=== PATIENT | female | born 1995 | race Caucasian/White ===

== ENCOUNTER 2024-08-12 14:11 | Emergency (ER) | payer MEDICAID, SELFPAY ==
[2024-08-12 14:16] VITALS: BP 124/70; PULSE 91; RESP 18; TEMP 36.8; O2SAT 100
[2024-08-12 14:17] VITALS: BMI 31.4
--- NOTE | 2024-08-12 14:26 | XR_ITS ---
Examination: Complete OB ultrasound, less than 14 weeks, transabdominal Date and time of exam: August 12, 2024 1506 hours INDICATIONS: Vaginal pain and bleeding beginning 2 days ago Technique: Obstetrical ultrasound images less than 14 weeks performed via transabdominal imaging Findings: Uterus 15.1 x 5.7 x 8.0 cm Endometrial stripe is not visualized No intrauterine gestation is noted Right ovary 4.7 x 3.5 x 4.0 cm arterial flow Left ovary 4.6 x 3.5 x 3.4 cm arterial flow IMPRESSION: Limited study Enlarged uterus No uterine mass or intrauterine gestation Mild free fluid in the anterior cul-de-sac, consider pelvic inflammatory disease
--- NOTE | 2024-08-12 14:27 | PD.EDVAGBL ---
ED OB Contraction Preg RMI/HPI General Chief complaint: Vaginal Bleeding Stated complaint: VAGINAL BLEEDING Time Seen by Provider: 08/12/24 14:23 Arrival date/time: 08/12/24 14:11 RME / HPI RME / HPI Narrative: 28-year-old female patient 5 para 3 1, about 9 weeks , came in for evaluation regarding vaginal bleeding. Patient started to have vaginal bleeding since early this morning, associated with pelvic cramping, severity is moderate patient is moaning and crying. Patient told me that blood clots is coming out also. Patient denies any trauma denies any other complaints no medications taken prior to arrival. Related Data Previous Rx's ?Medication ?Instructions ?Recorded doxycycline hyclate 100 mg capsule 100 mg PO BID #10 caps 08/12/24 methylergonovine 0.2 mg tablet 0.2 mg PO QID 1 day #4 tabs 08/12/24 Allergies Allergy/AdvReac Type Severity Reaction Status Date / Time No Known Allergies Allergy Verified 12/23/21 03:35 Review of Systems Review of Systems Narrative Review of Systems: Review of system reviewed and within normal limits except mentioned in HPI ED Exam Narrative Physical exam: VITAL SIGNS: Reviewed. GENERAL APPEARANCE: Alert and interactive, follows commands, no acute distress, HEAD AND FACE: Non-traumatic. ENT: PERRL, pink conjunctivitis, eyelid no trauma, Mucous membrane moist. NECK: Supple, nontender, no nuchal rigidity. CHEST: No tenderness, no crepitus, no paradoxical movement, no retractions. LUNGS: Clear, well ventilated, symmetric, no rales, no wheezing, no ronchi, no stridor, good breath sounds bilaterally. HEART: Regular rate, regular rhythm, no murmur, no gallops. ABDOMEN: Soft, positive bowel sounds, nondistended, no guarding, nontender, no rebound, no masses, RECTAL: Deferred. GENITAL: Pelvic tenderness NEUROLOGICAL: Gross motor function intact sensory function intact, Appropriate for age. MUSCULOSKELETAL: low back nontender, full range of motion. EXTREMITIES: Nontender, full range of motion. SKIN: Color pink, dry, no rash, no lacerations, no abrasions, no contusions. LYMPHATICS: Deferred. Course Quality Measures none Orders Category Date Time Status Specimen to pathology NOW Care 08/12/24 18:24 Active US OB <= 14 weeks fetus Stat Exams 08/12/24 14:26 Completed US OB transvaginal Stat Exams 08/12/24 15:14 Completed ABO/RH Type Stat Lab 08/12/24 14:48 Completed Basic Metabolic Panel Stat Lab 08/12/24 14:48 Completed Beta HCG,Quantitative Stat Lab 08/12/24 14:48 Completed CBC Stat Lab 08/12/24 14:48 Completed Urinalysis Stat Lab 08/12/24 14:26 Ordered Acetaminophen Ivpb [Ofirmev Inj] Med 08/12/24 14:27 Discontinued 1,000 mg in 100 ml IV X1 Doxycycline [Vibramycin] Med 08/12/24 20:27 Discontinued 100 mg PO X1 ONE Ketorolac Inj [Toradol Inj] Med 08/12/24 15:11 Discontinued 30 mg IVP X1 ONE Morphine Inj Med 08/12/24 14:41 Discontinued 4 mg IVP X1 ONE Ondansetron Inj [Zofran Inj] Med 08/12/24 14:41 Discontinued 4 mg IV X1 ONE Potassium Chloride [K-Dur] Med 08/12/24 20:27 Discontinued 40 meq PO X1 ONE Sodium Chloride 0.9% 1000 ml [Ns] 1,000 ml Med 08/12/24 14:42 Discontinued IV 999 mls/hr Sodium Chloride 0.9% 1000 ml [Ns] 1,000 ml Med 08/12/24 19:14 Discontinued IV 999 mls/hr Vital Signs Vital signs: Vital Signs Temperature 98.3 F 08/12/24 14:16 Pulse Rate 91 08/12/24 14:16 Respiratory Rate 18 08/12/24 14:16 Blood Pressure 124/70 08/12/24 14:16 Pulse Oximetry (%) 100 08/12/24 14:16 Oxygen Delivery Method Room Air 08/12/24 14:16 Vaginal Bleeding MDM Narrative MDM Narrative: 28-year-old female patient 5 para 3 1, about 9 weeks , came in for evaluation regarding vaginal bleeding. Patient started to have vaginal bleeding since early this morning, associated with pelvic cramping, severity is moderate patient is moaning and crying. Patient told me that blood clots is coming out also. Patient denies any trauma denies any other complaints no medications taken prior to arrival. While in the ambulance lobby, patient passed out fetus looking tissue. It was sent to the lab. Patient's workup came back with hemoglobin of 9.6, hematocrit of 30.1. Potassium was noted to be 3.2 ultrasound transmission showed thickened endometrium, with possible retained products of conception. Spoke with Dr. Ramos, TABLET MAKING MACHINE OPERATOR on-call, who examined the patient in the emergency room and did a pelvic exam also. Patient is okay to be discharged home according to TABLET MAKING MACHINE OPERATOR. On multiple reevaluation I did not notice any heavy bleeding, there is only scant bleeding noted on the diaper. Vital signs are stable patient able to ambulate without any assistance. No recurrence of dizziness. Blood pressure prior to discharge was noted to be 105/56 taken by me Patient data External records reviewed:: None Clinical information provided by:: patient Social determinants that could affect healthcare access:: none Patient has the following chronic illnesses:: None How is presenting disease/condition affected by chronic disease/condition?: exacerbated by Evaluation data The following diagnostics were reviewed and interpreted by me:: lab results and radiology exam(s) Lab and/or radiology exams considered but not ordered:: None Interpretation Summary: Patient's workup came back with hemoglobin of 9.6, hematocrit of 30.1. Potassium was noted to be 3.2 ultrasound transmission showed thickened endometrium, with possible retained products of conception. Medications / Prescriptions Medications or Prescriptions considered but not ordered:: None Medication administrations:: Medication Administration History Discontinued Medications Doxycycline Hyclate (Doxycycline 100 Mg Tablet) 100 mg PO X1 ONE Stop: 08/12/24 20:28 Acetaminophen (Ofirmev Inj) 1,000 mg in 100 mls @ 250 mls/hr IV X1 ONE Stop: 08/12/24 14:50 Last Admin: 08/12/24 15:10 Dose: Not Given Documented By: DB Non-Admin Reason: Discontinued Sodium Chloride (Ns) 1,000 mls @ 999 mls/hr IV .Q1H1M ONE Stop: 08/12/24 15:42 Last Infusion: 08/12/24 16:20 Dose: Infused Documented By: Admin: 08/12/24 15:12 Dose: 999 mls/hr Documented By: EH Sodium Chloride (Ns) 1,000 mls @ 999 mls/hr IV .Q1H1M ONE Stop: 08/12/24 20:14 Last Admin: 08/12/24 19:15 Dose: 999 mls/hr Documented By: CB Ketorolac Tromethamine (Ketorolac Inj 30 Mg/Ml Vial) 30 mg IVP X1 ONE Stop: 08/12/24 15:12 Last Admin: 08/12/24 15:20 Dose: 30 mg Documented By: DB Morphine Sulfate (Morphine Sulf Inj 10 Mg/Ml Vial) 4 mg IVP X1 ONE Stop: 08/12/24 14:42 Last Admin: 08/12/24 14:54 Dose: 4 mg Documented By: EH Ondansetron HCl (Ondansetron Inj 2 Mg/Ml Inj 2 Ml) 4 mg IV X1 ONE; Protocol Stop: 08/12/24 14:42 Last Admin: 08/12/24 15:09 Dose: 4 mg Documented By: EH Potassium Chloride (Potassium Chloride 20 Meq Tabcr) 40 meq PO X1 ONE Stop: 08/12/24 20:28 IV fluids for hydration Toradol and morphine. Patient was also given doxycycline and potassium replacement Consultations Consultation(s) initiated? (list below): No Diagnosis Vaginal Bleeding Differential Diagnosis: missed , threatened and other (Complete ) Most likely diagnosis given after review of the tests above:: Completed Admission Indicated Admission indicated?: not indicated Explain why admission is indicated or not indicated:: Stable Admission Request Was there a request for admission?: No Disposition Plan Disposition Plan: Discharge Discharge Attestation Discharge Attestation: The patient was given an opportunity to ask questions and understood the discharge instructions. Discharge instructions specifically effects, indications for sooner follow up or return to the emergency department, and the expected course of current diagnosis. Patient condition: Stable Discharge Plan Plan Patient Disposition: HOME (Self Care) Disposition Comment: Stable Patient condition on transfer: Stable Prescriptions/Referrals Prescriptions/Med Rec: New methylergonovine 0.2 mg tablet 0.2 mg PO QID 1 Days Qty: 4 0RF doxycycline hyclate 100 mg capsule 100 mg PO BID Qty: 10 0RF Referrals: Ayden Moyer MD [Primary Care Provider] - In 1 week Problem List Clinical Impression: Complete Patient/Caregiver Discharge Instructions Discharge Activity: activity as tolerated Education Materials: ED MISCARRIAGE Completed Additional Instructions: Thank you for the opportunity for serving you today. You are stable for discharged . You are advised to: Follow-up with your TABLET MAKING MACHINE OPERATOR next week Return to ED for worsening of symptoms, increasing bleeding, dizziness, inability to ambulate due to dizziness Increase oral fluids Take medication as prescribed Print Language: [place]an Stand Alone Forms: Stefanie Award Info., Patient Portal Info Letter
[2024-08-12] MEDS: MORPHINE SULF INJ 10 MG/ML VIAL 4 MG IVP (14:54)
[2024-08-12] MEDS: ONDANSETRON INJ 2 MG/ML INJ 2 ML 4 MG IV (15:09)
[2024-08-12] MEDS: SODIUM CHLORIDE 0.9% 1000 ML 1,000 ML 999 ML IV ×2 (15:12→19:15)
[2024-08-12 15:13] LABS: Basophils # (Auto) 0.1 Thou/mm3 (0.0-0.2); Basophils % (Auto) 0 % (0-2.5); Eosinophils # (Auto) 0.1 Thou/mm3 (0.0-0.5); Eosinophils % (Auto) 0 % (0-10); Hematocrit 30.1 % (36.0-46.0); Hemoglobin 9.6 g/dL (12.0-16.0); Immature Granulocytes % (Auto) 0 % (0-0); Immature Granulocytes Auto 0.06 Thou/mm3 (0.00-0.00); Lymphocytes # (Auto) 1.6 Thou/mm3 (1.0-4.8); Lymphocytes % (Auto) 11 % (10-50); Mean Corpuscular HGB Conc 31.9 g/dl (31.0-37.0); Mean Corpuscular Hemoglobin 23.4 pg (25.0-35.0); Mean Corpuscular Volume 73 fL (80-100); Monocytes # (Auto) 0.5 Thou/mm3 (0.0-0.8); Monocytes % (Auto) 4 % (0-12); Neutrophils # (Auto) 11.4 Thou/mm3 (1.8-7.7); Neutrophils % (Auto) 84 % (37-80); Nucleated Red Blood Cell % 0 /100 WBC (0); Platelet Count 364 Thou/mm3 (140-440); RDW Standard Deviation 43.8 fL (36.4-46.3); White Blood Count 13.6 Thou/mm3 (3.6-11.0)
--- NOTE | 2024-08-12 15:14 | XR_ITS ---
Examination: OB Transvaginal ultrasound of the pelvis, complete Technique: Transvaginal sonographic images pelvis performed using gramajo scale imaging Exam date and time: August 12, 2024 1540 hours INDICATIONS: Vaginal bleeding and pelvic pain beginning 2 days ago worse today FINDINGS: Uterus 10.2 x 5.9 x 7.4 cm Endometrium 2.5 cm Echo pattern is heterogeneous No intrauterine gestation No discrete uterine mass Right ovary 3.5 x 2.7 x 2.7 cm arterial flow 18 mm follicular cyst Left ovary 3.7 x 1.7 x 2.0 cm arterial flow IMPRESSION: No intrauterine gestation Heterogeneous thickened endometrial stripe 2.5 cm, consider retained products of conception, recommend continued short-term follow-up transvaginal pelvic sonography.
[2024-08-12] MEDS: KETOROLAC INJ 30 MG/ML VIAL IVP (15:20)
[2024-08-12 15:34] LABS: Anion Gap 11 (7-16); BUN/Creatinine Ratio 12 Ratio (12-20); Blood Urea Nitrogen 6 mg/dL (9-23); Calcium 8.9 mg/dL (8.3-10.6); Carbon Dioxide 20.8 mMol/L (20.0-31.0); Chloride 101 mMol/L (98-107); Creatinine (Component) 0.5 mg/dL (0.6-1.3); Estimated Creatinine Clearance 130.8 mL/min (>60); Glucose 117 mg/dL (74-106); Osmolality,Calculated 264 (275-295); Potassium 3.2 mMol/L (3.4-5.1); Sodium 133 mMol/L (136-145); eGFR > 60 See Note
[2024-08-12 16:20] LABS: Beta HCG,Quantitative 144373 mIU/mL (<5.0)
--- NOTE | 2024-08-12 16:20 | PC.NURSE ---
FETUS AND TISSUE SENT TO LAB FOR PATHOLOGY AT THIS TIME
[2024-08-12 16:30] VITALS: BP 87/52; PULSE 78; RESP 19; TEMP 36.5; O2SAT 100
[2024-08-12 17:00] VITALS: BP 97/66; PULSE 72; RESP 19; O2SAT 100
[2024-08-12 17:16] VITALS: BMI 31.4
--- NOTE | 2024-08-12 17:41 | ESCONSULT_ITS ---
MARKETING SALES REPRESENTATIVE HPI Data of Consult Primary Care Provider: Ayden Moyer MD Consult Narrative History of present illness: Princess is a 28yo who presented via ambulance to ED for vaginal bleeding and intense contraction-like pain. She is approximately 9 weeks per stated gestational age, she notes having an ultrasound done 2 weeks ago in an ER when she presented for nausea/vomiting- at that time, per her, was consistent with 7wk, SIUP with +FCA. She had not yet seen an OBGYN to establish care. She notes the last 2 weeks she has felt a lot of fatigue so was at home not doing much. Yesterday she began having brown spotting that got heavier to the point that today she had heavy bleeding and intense, severe contraction pains. When she got to the ER, she had intensified cramping and expelled what she and ER PA described as an intact fetus, however still having intermittent cramping after. was desired. cc:: cc: Review of Systems Review of Systems Systems Reviewed: All systems reviewed, normal except as documented Constitutional Constitutional: Denies chills, Denies fever(s), Denies headache(s) and Reports lethargy ENT Ears, Nose, Mouth, and Throat: Denies dizziness and Denies headache(s) Cardiovascular Cardiovascular: Denies chest pain, Denies dyspnea and Denies syncope Respiratory Respiratory: Denies cough and Denies dyspnea Neurologic Neurologic: Denies dizziness, Denies headache(s) and Denies syncope Past Medical History Family History OTHER FAMILY HX: No hx of hereditary cancer program coordinator cancers Surgical History SURGICAL: Positive Section (x3) OTHER SURGICAL HX: laparoscopic salpingectomy to treat ectopic Social History SOCIAL: Good support. Denies ETOH, tobacco, and illicit drug use. Past Medical History Comments PMH COMMENT: Benign PMhx. [place] Hand hx significant for chlamydia in the remote past as well as ectopic . Meds Home Medications and Allergies Allergies Allergy/AdvReac Type Severity Reaction Status Date / Time No Known Allergies Allergy Verified 12/23/21 03:35 Exam - MARKETING SALES REPRESENTATIVE Vital Signs Temp Pulse Resp BP Pulse Ox O2 Del Method 97.7 F 72 19 97/66 100 Room Air 08/12/24 16:30 08/12/24 17:00 08/12/24 17:00 08/12/24 17:00 08/12/24 17:00 08/12/24 17:00 Narrative Exam General: well developed, well nourished, no acute distress, conversant Cardiac: normal heart rate Lungs: breathing without distress Abdomen: soft, non-tender, no rebound or guarding Extremities: no BLE edema Routine Exam Comments: exam and removal of POC within cervix: RN steam box tender present for encounter. NEFG, blood noted on perineum. SSE showed pooling of modest amount of blood in vaginal vault, very anterior cervix (likely related to prior sections) was open with products of conception bulging out. After obtaining verbal consent, cervix was swabbed with betadine and sterile ring forceps were used to tease the tissue out. The tissue appeared to come out intact. Will send to pathology. Gentle search with the ring forceps just inside and above the cervical canal revealed only small clots- no further tissue. Patient noted feeling great relief of her contraction-like pain once the tissue was removed. Cervix swabbed with 4x4 and observed for 1-2 minutes with hemostasis noted. Cervix began to close. All counts correct with nothing retained in vagina. Procedure well tolerated by patient. MARKETING SALES REPRESENTATIVE - Results Labs 08/12/24 14:48 08/12/24 14:48 Labs: Short CBC 08/12/24 Range/Units 14:48 WBC 13.6 H (3.6-11.0) Thou/mm3 Hgb 9.6 L (12.0-16.0) g/dL Hct 30.1 L (36.0-46.0) % Plt Count 364 (140-440) Thou/mm3 BMP 08/12/24 14:48 Sodium 133 L Potassium 3.2 L Chloride 101 Carbon Dioxide 20.8 BUN 6 L Creatinine 0.5 L Glucose 117 H Calcium 8.9 Impressions Impression: Examination: OB Transvaginal ultrasound of the pelvis, complete Technique: Transvaginal sonographic images pelvis performed using gramajo scale imaging Exam date and time: August 12, 2024 1540 hours INDICATIONS: Vaginal bleeding and pelvic pain beginning 2 days ago worse today FINDINGS: Uterus 10.2 x 5.9 x 7.4 cm Endometrium 2.5 cm Echo pattern is heterogeneous No intrauterine gestation No discrete uterine mass Right ovary 3.5 x 2.7 x 2.7 cm arterial flow 18 mm follicular cyst Left ovary 3.7 x 1.7 x 2.0 cm arterial flow IMPRESSION: No intrauterine gestation Heterogeneous thickened endometrial stripe 2.5 cm, consider retained products of conception, recommend continued short-term follow-up transvaginal pelvic sonography. Assessment and Plan Assessment and plan (1) Complete : Status: Acute Assessment and plan: Princess is a 28yo [id number] with complete at approximately 9wk after removal of products of conception from an open cervix with ring forceps in the ER. Vitals wnl, benign exam. Hgb 9.6, consistent with her chronic known anemia. Rh positive. Ultrasound showed 2.5cm heterogeneous stripe within endometrium consistent with the small amount of retained products of conception that were partially through the cervix and subsequently removed. She is hemodynamically stable. MARKETING SALES REPRESENTATIVE Recommendations: -Observe for 3-4 hours in ER. If bleeding is less than saturating 1 pad in an hour, ok for discharge home -I sent Rx to her pharmacy: methergine 0.2mg PO Q6hr x4 doses to express remaining small clot within uterus and doxycycline 100mg PO BID x5 days for prophylaxis given minor instrumentation -Expelled fetus was sent to pathology before I saw patient, I also sent the retained POC that I removed to pathology -I discussed return precautions at length with patient for any bleeding > 1 pad per hour that is sustained over 2 hours, pre-/syncope, fevers >100.4F, chills, returning severe uterine pain/cramping, foul smelling discharge -I advised her to re-establish care with OBGYN within the next 2 weeks -Advised ok to try for again after 1 normal menstrual cycle. Instructed her to start PNV before she begins trying to conceive again. Alecia Ramos MD
[2024-08-12 19:05] VITALS: BP 90/60; PULSE 68; RESP 16; O2SAT 98
[2024-08-12] MEDS: DOXYCYCLINE 100 MG TABLET PO (20:31)
[2024-08-12] MEDS: POTASSIUM CHLORIDE 20 mEq TABCR 40 MEQ PO (20:31)
[2024-08-12 20:39] VITALS: BP 96/65; PULSE 72; RESP 18; TEMP 36.8; O2SAT 98
== END 2024-08-12 20:41 | disposition home or self-care (01) ==
PROVIDERS: Nurse Practitioner Family; Emergency Provider Emergency Medicine; PCP Family Medicine
DX: O03.4 Incomplete spontaneous abortion without complication (principal)
CPT/HCPCS: 36415; 76801; 76817; 80048; 81001; 84702; 85025; 86900; 86901; 96361; 96374; 96375; 99284; J1885; J2270; J2405; J7030; A9270